=== PATIENT | male | born 1945 | race Caucasian/White ===

== ENCOUNTER 2017-12-07 10:40 | Inpatient (IN) | payer MEDICARE ==
[2017-12-01 15:41] LABS: BASOPHILS % (AUTO) 0.5 % (0-1); EOSINOPHILS # (AUTO) 0.5 X10'3 (0-0.9); EOSINOPHILS % (AUTO) 7.2 % (0-6); LYMPHOCYTES # (AUTO) 1.9 X10'3 (1.1-4.8); LYMPHOCYTES % (AUTO) 28.6 % (21-51); MEAN CORPUSCULAR HEMOGLOBIN 29.6 PG (27.0-31.0); MEAN CORPUSCULAR VOLUME 89.4 FL (78-98); MEAN PLATELET VOLUME 7.6 FL (7.4-10.4); MONOCYTES # (AUTO) 0.8 X10'3 (0-0.9); MONOCYTES % (AUTO) 12.6 % (2-12); NEUTROPHILS # (AUTO) 3.4 X10'3 (1.8-7.7); NEUTROPHILS % (AUTO) 51.1 % (42-75); PRE OP HEMATOCRIT 41.2 % (42.0-52.0); PRE OP HEMOGLOBIN 13.6 g/dL (14.0-17.9); PRE OP PLATELET COUNT 269 X10'3 (140-440); RED CELL DISTRIBUTION WIDTH 14.1 % (11.5-14.5)
[2017-12-01 15:55] LABS: ALBUMIN 3.7 G/DL (3.4-5.0); ALKALINE PHOSPHATASE 94 IU/L (46-116); BLOOD UREA NITROGEN 19 MG/DL (7-18); BUN/CREATININE RATIO 23.8 (5.4-32.0); CALCIUM 9.1 MG/DL (8.5-10.1); CHLORIDE 105 MMOL/L (99-107); PRE OP ALT 29 U/L (30-65); PRE OP ANION GAP 5 (8-16); PRE OP AST 18 U/L (10-37); PRE OP BILIRUB, TOTAL 0.3 MG/DL (0.0-1.0); PRE OP GLUCOSE 123 MG/DL (70-104); PRE OP SODIUM 140 MMOL/L (135-145); TOTAL CARBON DIOXIDE 30.1 MMOL/L (24-32); TOTAL PROTEIN 7.4 G/DL (6.4-8.2); eGFR > 90 ML/MIN
[2017-12-01 15:57] LABS: PRE OP PROTIME 10.2 SECONDS (9.0-12.0)
[~2017-12-07] VITALS: Ht 180.3 cm; Wt 107.3 kg
[2017-12-07] VITALS (14 sets, daily range): BP systolic 113–144; BP diastolic 50–84
[~2017-12-07 10:40] MED LIST: NAPR500T4 PO; PARO30TA73 PO; PRAV80TA3 PO; acetaminophen 325mg tablet PO ONE; ceFAZolin inj. 2,000 MG in dextrose 5%-water 100 ML IV ONE; famotidine 20mg tablet PO ONE; gabapentin 300mg capsule PO ONE; metoclopramide 5 mg/ml inj IV ONE; oxyCODONE SR 10mg (sust. release) tab PO ONE; ringers solution, lacted 1,000 ML IV SCH; tranexamic acid inj. 1,000 MG in normal saline 100ml IV soln 90 ML IV ONE; vancomycin inj 1,500 MG in normal saline 300ml IV soln IV ONE
[2017-12-07] MEDS ORDERED: ceFAZolin 1000mg inj ONE ×2 (13:06→15:23)
[2017-12-07] MEDS ORDERED: cloNIDine hcl/PF 100mcg/ml inj ONE (13:11)
[2017-12-07] MEDS ORDERED: meperidine/PF 25mg/ml syringe IV ONE ×2 (13:15)
[2017-12-07] MEDS ORDERED: ringers solution, lacted 1,000 ML IV SCH ×2 (13:15)
[2017-12-07] MEDS ORDERED: proCHLORperazine 10 MG/2 ml inj IV PRN ×2 (13:15)
[2017-12-07] MEDS ORDERED: ondansetron/PF 4mg/2ml inj IV PRN ×3 (13:15→15:55)
[2017-12-07] MEDS ORDERED: fentaNYL/PF 50MCG/1 ML 2ML syringe IV PRN ×2 (13:15)
[2017-12-07] MEDS ORDERED: desflurane 240ml liquid inh. IH ONE (13:20)
[2017-12-07] MEDS ORDERED: fentaNYL/PF 50MCG/1 ML 2ML syringe ONE (13:25)
[2017-12-07] MEDS ORDERED: midazolam 2 mg/2 ml injection ONE (13:25)
[2017-12-07] MEDS ORDERED: dexamethasone sod phosphate 4mg/ml inj. ONE (14:18)
[2017-12-07] MEDS ORDERED: ePHEDrine 50MG/ML INJ. ONE (14:18)
[2017-12-07] MEDS ORDERED: LIDOcaine 2% (20mg/ml) 5ml vial ONE (14:18)
[2017-12-07] MEDS ORDERED: propofol inj 20 ML IV ONE (14:18)
[2017-12-07] MEDS ORDERED: rocuronium 10mg/ml inj IV ONE (14:18)
[2017-12-07] MEDS ORDERED: BUPIVAcaine/PF 2.5 mg/ml (0.25%) 30ml vial ONE (14:18)
[2017-12-07] MEDS ORDERED: LIDOcaine 1%/PF (10mg/ml) 5ml vial ONE (14:18)
[2017-12-07] MEDS ORDERED: ondansetron/PF 4mg/2ml inj ONE (14:19)
[2017-12-07] MEDS ORDERED: vancomycin 1,000mg inj ONE (15:39)
[2017-12-07] MEDS ORDERED: acetaminophen 325mg tablet PO PRN (15:55)
[2017-12-07] MEDS ORDERED: diphenhydrAMINE 25mg capsule PO PRN ×2 (15:55)
[2017-12-07] MEDS ORDERED: oxyCODONE IR 5mg (immed. release) tablet PO PRN ×2 (15:55)
[2017-12-07] MEDS ORDERED: bisacodyl 10mg suppository rectal RC PRN (15:55)
[2017-12-07] MEDS ORDERED: tranexamic acid inj. 1,000 MG in normal saline 100ml IV soln 100 ML IV ONE (15:55)
[2017-12-07] MEDS ORDERED: magnesium hydroxide 30ml (MOM) UD suspension PO PRN (15:55)
[2017-12-07] MEDS ORDERED: glycopyrrolate 0.2mg/ml inj ONE (16:04)
[2017-12-07] MEDS: potassium cl 20mEq in 1/2 NS 1,000 ML IV SCH ×2 (17:28→23:40)
[2017-12-07] MEDS: cefazolin 1gm/NS 100mL 100 ML IV SCH ×2 (17:28→23:41)
[2017-12-07] MEDS ORDERED: vancomycin/NS 1 GM ADD-VANTAGE 250 ML IV SCH (20:00)
[2017-12-07] MEDS: gabapentin 300mg capsule PO SCH (20:15)
[2017-12-07] MEDS: celeCOXIB 100mg capsule PO SCH (20:15)
[2017-12-07] MEDS: acetaminophen 325mg tablet PO SCH (20:15)
[2017-12-07] MEDS ORDERED: sennosides 8.6mg tablet PO SCH (21:00)
[2017-12-08] MEDS: acetaminophen 325mg tablet PO SCH ×2 (02:11→08:03)
[2017-12-08 02:38] VITALS: BP 137/75
[2017-12-08 05:00] VITALS: BP 116/72
[2017-12-08 06:15] LABS: BASOPHILS % (AUTO) 0.3 % (0-1); EOSINOPHILS # (AUTO) 0.1 X10'3 (0-0.9); EOSINOPHILS % (AUTO) 1.5 % (0-6); HEMATOCRIT 34.7 % (42.0-52.0); HEMOGLOBIN 11.5 g/dl (14.0-17.9); LYMPHOCYTES # (AUTO) 0.7 X10'3 (1.1-4.8); MEAN CORPUSCULAR HEMOGLOBIN 29.6 PG (27.0-31.0); MEAN CORPUSCULAR HGB CONC 33.2 % (33.0-36.5); MEAN CORPUSCULAR VOLUME 89.3 FL (78-98); MEAN PLATELET VOLUME 8.6 FL (7.4-10.4); MONOCYTES # (AUTO) 0.6 X10'3 (0-0.9); MONOCYTES % (AUTO) 7.2 % (2-12); NEUTROPHILS # (AUTO) 7.4 X10'3 (1.8-7.7); PLATELET COUNT 217 X10'3 (140-440); RED BLOOD COUNT 3.89 X10'6 (4.70-6.10); RED CELL DISTRIBUTION WIDTH 13.6 % (11.5-14.5); WHITE BLOOD COUNT 8.9 X10'3 (4.5-11.0)
[2017-12-08 06:34] LABS: ANION GAP 5 (8-16); CHLORIDE 104 MMOL/L (99-107); SODIUM 135 MMOL/L (135-145); TOTAL CARBON DIOXIDE 25.7 MMOL/L (24-32)
[2017-12-08] MEDS: potassium cl 20mEq in 1/2 NS 1,000 ML IV SCH (07:55)
[2017-12-08] MEDS ORDERED: pravastatin 40mg tablet PO SCH (08:00)
[2017-12-08] MEDS ORDERED: PARoxetine 30mg tablet PO SCH (08:00)
[2017-12-08] MEDS: celeCOXIB 100mg capsule PO SCH (08:04)
[2017-12-08] MEDS: gabapentin 300mg capsule PO SCH (08:04)
[2017-12-08] MEDS ORDERED: PARoxetine 10mg tablet PO SCH (08:08)
[2017-12-08] MEDS ORDERED: aspirin 325mg tablet PO SCH (08:30)
[2017-12-08] MEDS ORDERED: ASPI-1 PO (09:20)
[2017-12-09] MEDS ORDERED: acetaminophen 325mg tablet PO PRN (15:55)
== END 2017-12-08 10:15 | disposition home or self-care (01) | DRG 483 ==
LOC: PAS IN 10:40 → EDSTATUS 14:00 → ORTHO 4S 16:45
PROVIDERS: ADMIT Orthopaedic Surgery; ATTEND Orthopaedic Surgery
PROC: 3E0T3BZ Introduction of Anesthetic Agent into Peripheral Nerves and Plexi, Percutaneous Approach (ICD-10-PCS; 2017-12-07)
PROC: 0RRK00Z Replacement of Left Shoulder Joint with Reverse Ball and Socket Synthetic Substitute, Open Approach (ICD-10-PCS; principal; 2017-12-07 13:20)
DX: M19.012 Primary osteoarthritis, left shoulder (principal); D62 Acute posthemorrhagic anemia; M75.102 Unspecified rotator cuff tear or rupture of left shoulder, not specified as traumatic; E78.5 Hyperlipidemia, unspecified; F32.9 Major depressive disorder, single episode, unspecified; Z79.899 Other long term (current) drug therapy
CPT/HCPCS: 36415; 80051; 80053; 85025; 85610; 85730; 87070; 93005; 97116; 97161; 97530; A4565; A6255; A7000; C1758; C9250; J0690; J0735; J1100; J2001; J2250; J2405; J2704; J2765; J3010; J3370; J3490; J7060; J7120

== ENCOUNTER 2022-02-03 08:54 | Inpatient (IN) | payer OTHER ==
[2022-01-27 12:11] LABS: BASOPHILS # (AUTO) 0.1 X10'3 (0-0.2); BASOPHILS % (AUTO) 1.2 % (0-1); EOSINOPHILS # (AUTO) 0.6 X10'3 (0-0.9); EOSINOPHILS % (AUTO) 10.3 % (0-6); LYMPHOCYTES # (AUTO) 1.4 X10'3 (1.1-4.8); LYMPHOCYTES % (AUTO) 24.6 % (21-51); MEAN CORPUSCULAR HEMOGLOBIN 28.8 PG (27.0-31.0); MEAN CORPUSCULAR HGB CONC 33.1 g/dL (33.0-36.5); MEAN CORPUSCULAR VOLUME 86.9 FL (78-98); MEAN PLATELET VOLUME 7.9 FL (7.4-10.4); MONOCYTES # (AUTO) 0.6 X10'3 (0-0.9); MONOCYTES % (AUTO) 10.5 % (2-12); NEUTROPHILS % (AUTO) 53.4 % (42-75); PRE OP HEMATOCRIT 36.8 % (42.0-52.0); PRE OP HEMOGLOBIN 12.2 g/dL (14.0-17.9); PRE OP PLATELET COUNT 294 X10'3 (140-440); RED BLOOD COUNT 4.23 X10'6 (4.70-6.10); RED CELL DISTRIBUTION WIDTH 14.1 % (11.5-14.5)
[2022-01-27 12:49] LABS: ALBUMIN 4.1 G/DL (3.4-5.0); ALBUMIN/GLOBULIN RATIO 1.1 (1.1-1.5); ALKALINE PHOSPHATASE 86 IU/L (46-116); BLOOD UREA NITROGEN 19 MG/DL (7-18); BUN/CREATININE RATIO 24.7 (5.4-32.0); CALCIUM 9.4 MG/DL (8.5-10.1); CHLORIDE 104 MMOL/L (99-107); CREATININE 0.77 MG/DL (0.60-1.10); PRE OP ALT 34 U/L (30-65); PRE OP ANION GAP 10 (8-16); PRE OP AST 25 U/L (10-37); PRE OP BILIRUB, TOTAL 0.2 MG/DL (0.0-1.0); PRE OP GLUCOSE 128 MG/DL (70-104); PRE OP POTASSIUM 4.8 MMOL/L (3.4-5.1); PRE OP SODIUM 140 MMOL/L (135-145); TOTAL CARBON DIOXIDE 25.8 MMOL/L (24-32); TOTAL PROTEIN 7.7 G/DL (6.4-8.2); eGFR > 90 ML/MIN
[2022-02-03] VITALS (17 sets, daily range): BP systolic 87–159; BP diastolic 49–103
[~2022-02-03] VITALS: Ht 180.3 cm; Wt 106.8 kg
[~2022-02-03 08:54] MED LIST changes: +LISI10TA27 PO; +MULT-1085 PO; -NAPR500T4 PO; +PANT40TA54 PO; +PARO20TA6 PO; -PARO30TA73 PO; +TRAM50TA2 PO; -acetaminophen 325mg tablet PO ONE; -ceFAZolin inj. 2,000 MG in dextrose 5%-water 100 ML IV ONE; +cefazolin/dext.iso 2gm/50ml IV ONE; -gabapentin 300mg capsule PO ONE; -metoclopramide 5 mg/ml inj IV ONE; -oxyCODONE SR 10mg (sust. release) tab PO ONE; +tranexamic acid inj. 1,000 MG in 0.7% saline 100 ML PMX IV ONE; -tranexamic acid inj. 1,000 MG in normal saline 100ml IV soln 90 ML IV ONE; +vancomycin 1,500 MG in NS 300ml IV soln IV ONE; -vancomycin inj 1,500 MG in normal saline 300ml IV soln IV ONE
[2022-02-03] MEDS ORDERED: vancomycin 1,000mg inj ONE (09:50)
[2022-02-03] MEDS ORDERED: sevoflurane 250ml liquid IH ONE (11:09)
[2022-02-03] MEDS ORDERED: FENTANYL CITRATE/PF 50 MCG/1 ML VIAL ONE (11:12)
[2022-02-03] MEDS ORDERED: MIDAZolam 1 MG/ML 5ML VIAL ONE (11:12)
[2022-02-03] MEDS ORDERED: propofol inj 20 ML IV ONE (11:14)
[2022-02-03] MEDS ORDERED: ROPIVAcaine 0.5% (5mg/ml) 30ml vial ONE (11:14)
[2022-02-03] MEDS ORDERED: ePHEDrine 50MG/ML INJ. ONE (11:47)
[2022-02-03] MEDS ORDERED: ondansetron/PF 4mg/2ml inj IV PRN ×2 (12:35→14:15)
[2022-02-03] MEDS ORDERED: morphine 4 MG/ML inj SYRINge IV PRN (12:35)
[2022-02-03] MEDS ORDERED: morphine 2 MG/ML inj. syringe IV PRN (12:35)
[2022-02-03] MEDS ORDERED: proCHLORperazine 10 MG/2 ml inj IV PRN (12:35)
[2022-02-03] MEDS ORDERED: ROPIVAcaine 0.2% (10 MG/5 ML) BOLUS INJECTION INTERSCALE PRN (12:35)
[2022-02-03] MEDS ORDERED: meperidine/PF 25mg/ml syringe IV PRN ×3 (12:35)
[2022-02-03] MEDS ORDERED: ringers solution, lacted 1,000 ML IV SCH (12:35)
[2022-02-03] MEDS ORDERED: diphenhydrAMINE 25mg capsule PO PRN ×2 (14:15)
[2022-02-03] MEDS ORDERED: bisacodyl 10mg suppository rectal RC PRN (14:15)
[2022-02-03] MEDS ORDERED: magnesium hydroxide 30ml (MOM) UD suspension PO PRN (14:15)
[2022-02-03] MEDS ORDERED: HYDROmorphone 1 mg/ml syringe IV PRN (14:15)
[2022-02-03] MEDS ORDERED: HYDROmorphone inj. 0.5 MG/0.5 ML DISP.SYRIN IV PRN (14:15)
[2022-02-03] MEDS ORDERED: acetaminophen 325mg tablet PO PRN (14:15)
[2022-02-03] MEDS ORDERED: oxyCODONE IR 5mg (immed. release) tablet PO PRN (14:15)
--- NOTE | 2022-02-03 14:24 | NUR ---
Received from OR via hospital bed, accompanied by Anesthesiologist Dr. Armas and report given by Anesthesiolgist. 20G in left hand with LR running at 100ml/hr. on 10L mask. dressing to right shoulder cdi with cold pack and island dressing. pulses present. will continue to monitor.
[2022-02-03] MEDS: ROPIVAcaine 0.2%/PF PUMP/bolus 545 ML INTERSCALE SCH (14:51)
--- NOTE | 2022-02-03 15:24 | NUR ---
Report called to Ay[facility], patient transported to 345B
[2022-02-03] MEDS: ceFAZolin/D5W- 1GM premix 50 ML IV SCH ×2 (16:37→23:58)
[2022-02-03] MEDS ORDERED: tranexamic acid 1gm/0.7% sal. 100 ML IV ONE (17:00)
--- NOTE | 2022-02-03 18:19 | NUR ---
Problems reprioritized. Patient report given, questions answered & plan of care reviewed with TRISHA PATEL.
[2022-02-03] MEDS: potassium cl 20mEq in 1/2 NS 1,000 ML IV SCH ×2 (18:28→22:15)
[2022-02-03] MEDS ORDERED: VANCOMYCIN 1GM/200ML IVPB 200 ML IV SCH (20:00)
[2022-02-03] MEDS: acetaminophen 325mg tablet PO SCH (20:44)
[2022-02-03] MEDS: gabapentin 300mg capsule PO SCH (20:45)
[2022-02-03] MEDS ORDERED: sennosides 8.6mg tablet PO SCH (21:00)
[2022-02-04] VITALS: BP 120/67
[2022-02-04] MEDS: ceFAZolin/D5W- 1GM premix 50 ML IV SCH (00:19)
[2022-02-04] MEDS: acetaminophen 325mg tablet PO SCH ×3 (01:45→15:19)
[2022-02-04] MEDS: oxyCODONE IR 5mg (immed. release) tablet PO PRN ×2 (01:45→08:26)
[2022-02-04 04:00] VITALS: BP 126/82
[2022-02-04] MEDS: potassium cl 20mEq in 1/2 NS 1,000 ML IV SCH (04:10)
--- NOTE | 2022-02-04 04:22 | NUR ---
pt noted to desat to 88% while sleeping . pt on his own cpap. rt contacted and placed oxygen 2l nc thru his cpap . o2 sat 95% on cpap
[2022-02-04 06:04] LABS: ANION GAP 10 (8-16); CHLORIDE 103 MMOL/L (99-107); POTASSIUM 4.4 MMOL/L (3.5-5.1); SODIUM 137 MMOL/L (135-145); TOTAL CARBON DIOXIDE 23.7 MMOL/L (24-32)
[2022-02-04 06:18] LABS: BASOPHILS % (AUTO) 0.2 % (0-1); EOSINOPHILS % (AUTO) 0.2 % (0-6); HEMATOCRIT 31.8 % (42.0-52.0); HEMOGLOBIN 10.5 g/dl (14.0-17.9); LYMPHOCYTES # (AUTO) 0.6 X10'3 (1.1-4.8); LYMPHOCYTES % (AUTO) 7.8 % (21-51); MEAN CORPUSCULAR HEMOGLOBIN 28.6 PG (27.0-31.0); MEAN CORPUSCULAR VOLUME 86.7 FL (78-98); MEAN PLATELET VOLUME 8.3 FL (7.4-10.4); MONOCYTES # (AUTO) 0.9 X10'3 (0-0.9); MONOCYTES % (AUTO) 10.8 % (2-12); NEUTROPHILS # (AUTO) 6.5 X10'3 (1.8-7.7); PLATELET COUNT 258 X10'3 (140-440); RED BLOOD COUNT 3.67 X10'6 (4.70-6.10); RED CELL DISTRIBUTION WIDTH 13.7 % (11.5-14.5)
--- NOTE | 2022-02-04 06:32 | NUR ---
pt states numbness in left foot improved and r thumb numbness is not present. pt has movement , sensation , brisk cap refill and warmth to r hand
--- NOTE | 2022-02-04 06:43 | NUR ---
Patient in room [facility]. I have received report from AMANDA Lee and had the opportunity to ask questions and assume patient care.
[2022-02-04 07:34] VITALS: BP 164/68
[2022-02-04] MEDS ORDERED: lisinopril 10 MG tablet PO SCH (08:00)
[2022-02-04] MEDS: gabapentin 300mg capsule PO SCH ×2 (08:26→12:32)
[2022-02-04] MEDS ORDERED: aspirin 325mg tablet PO SCH (08:30)
[2022-02-04 11:00] VITALS: BP 165/95
[2022-02-04] MEDS ORDERED: ketorolac tromethamine 15mg/ml inj. IV ONE (11:45)
[2022-02-04] MEDS ORDERED: HYDROcodone/acetaminophen 10/325mg tab PO ONE (11:45)
[2022-02-04] MEDS ORDERED: traMADol 50MG tablet PO PRN (12:10)
[2022-02-04 12:32] VITALS: BP_SYST 165
[2022-02-04] MEDS ORDERED: GABA300C PO (12:52)
[2022-02-04] MEDS ORDERED: HYDR-3972 PO (12:52)
[2022-02-04] MEDS ORDERED: ASPI-107 PO (13:52)
[2022-02-04] MEDS: ROPIVAcaine 0.2%/PF PUMP/bolus 545 ML INTERSCALE SCH (16:05)
--- NOTE | 2022-02-04 17:10 | NUR ---
Pt discharged to home at 1625, with all belongings, in private vehicle accompanied by . Discharge instructions and medications reviewed. New prescriptions e-scripted to [facility] on [address]. Pt instructed to follow up with Dr Galvez in 1-2 weeks, and to call his office to schedule appointment. Education provided regarding post-op care, including signs of infection and to contact Dr Galvez with any concerns. OnQ pump replaced prior to discharge, with instructions to DC when empty. Pt states understanding and willingness to comply with all discharge instructions. IV DC'd, cannula intact. Pt escorted to front lobby via wheelchair by PCT.
[2022-02-04] MEDS ORDERED: pantoprazole 40mg Tablet.DR PO SCH (20:00)
[2022-02-04] MEDS ORDERED: celeCOXIB 100mg capsule PO SCH (20:00)
[2022-02-05] MEDS ORDERED: multivitamins, therapeutics tablet PO SCH (08:00)
[2022-02-05] MEDS ORDERED: PARoxetine 20mg tablet PO SCH (08:00)
[2022-02-05] MEDS ORDERED: atorvastatin 20mg tablet PO SCH (08:00)
[2022-02-05] MEDS ORDERED: acetaminophen 325mg tablet PO PRN (14:15)
== END 2022-02-04 16:25 | disposition home or self-care (01) | DRG 483 ==
LOC: PAS IN 08:54 → SUR 3N 15:49
PROVIDERS: ADMIT Orthopaedic Surgery; ATTEND Orthopaedic Surgery
PROC: 3E0T3BZ Introduction of Anesthetic Agent into Peripheral Nerves and Plexi, Percutaneous Approach (ICD-10-PCS; 2022-02-03)
PROC: 3E0T33Z Introduction of Anti-inflammatory into Peripheral Nerves and Plexi, Percutaneous Approach (ICD-10-PCS; 2022-02-03)
PROC: 0RRJ00Z Replacement of Right Shoulder Joint with Reverse Ball and Socket Synthetic Substitute, Open Approach (ICD-10-PCS; principal; 2022-02-03 11:09)
DX: M19.011 Primary osteoarthritis, right shoulder (principal); D62 Acute posthemorrhagic anemia; M75.101 Unspecified rotator cuff tear or rupture of right shoulder, not specified as traumatic; I10 Essential (primary) hypertension; G47.30 Sleep apnea, unspecified; E66.9 Obesity, unspecified; G89.29 Other chronic pain; M54.9 Dorsalgia, unspecified; Z68.32 Body mass index [BMI] 32.0-32.9, adult; Z79.899 Other long term (current) drug therapy
CPT/HCPCS: 36415; 71046; 73020; 80051; 80053; 81003; 82948; 85025; 87081; 93005; 97110; 97161; 97530; A4565; A4618; A7000; C1776; C9250; G0378; J0690; J1170; J1885; J2250; J2704; J2795; J3010; J3370; J3480; J3490; J7040; J7120

== ENCOUNTER 2022-02-09 00:34 | Emergency (ER) | payer OTHER ==
[~2022-02-09] VITALS: Ht 180.3 cm; Wt 104.5 kg
[~2022-02-09 00:34] MED LIST changes: +ASPI-107 PO; +GABA300C PO; +HYDR-3972 PO; -TRAM50TA2 PO; -cefazolin/dext.iso 2gm/50ml IV ONE; -famotidine 20mg tablet PO ONE; -ringers solution, lacted 1,000 ML IV SCH; -tranexamic acid inj. 1,000 MG in 0.7% saline 100 ML PMX IV ONE; -vancomycin 1,500 MG in NS 300ml IV soln IV ONE
[2022-02-09 00:37] VITALS: BP 123/72
[2022-02-09 03:04] LABS: BASOPHILS # (AUTO) 0.1 X10'3 (0-0.2); BASOPHILS % (AUTO) 0.9 % (0-1); EOSINOPHILS # (AUTO) 0.4 X10'3 (0-0.9); EOSINOPHILS % (AUTO) 6.1 % (0-6); HEMATOCRIT 29.7 % (42.0-52.0); HEMOGLOBIN 9.7 g/dl (14.0-17.9); LYMPHOCYTES # (AUTO) 1.1 X10'3 (1.1-4.8); MEAN CORPUSCULAR HEMOGLOBIN 28.2 PG (27.0-31.0); MEAN CORPUSCULAR HGB CONC 32.7 g/dL (33.0-36.5); MEAN CORPUSCULAR VOLUME 86.2 FL (78-98); MEAN PLATELET VOLUME 7.3 FL (7.4-10.4); MONOCYTES # (AUTO) 0.8 X10'3 (0-0.9); MONOCYTES % (AUTO) 13.2 % (2-12); NEUTROPHILS # (AUTO) 3.7 X10'3 (1.8-7.7); NEUTROPHILS % (AUTO) 61.8 % (42-75); PLATELET COUNT 343 X10'3 (140-440); RED BLOOD COUNT 3.45 X10'6 (4.70-6.10); RED CELL DISTRIBUTION WIDTH 13.9 % (11.5-14.5); WHITE BLOOD COUNT 5.9 X10'3 (4.5-11.0)
[2022-02-09 03:18] LABS: ALANINE AMINOTRANSFERASE 43 U/L (12-78); ALBUMIN 3.1 G/DL (3.4-5.0); ALBUMIN/GLOBULIN RATIO 0.6 (1.1-1.5); ALKALINE PHOSPHATASE 125 IU/L (46-116); ANION GAP 9 (8-16); ASPARTATE AMINO TRANSFERASE 45 U/L (10-37); BILIRUBIN,TOTAL 0.3 MG/DL (0.1-1.0); BLOOD UREA NITROGEN 12 MG/DL (7-18); BUN/CREATININE RATIO 15.4 (5.4-32.0); CHLORIDE 101 MMOL/L (99-107); CREATININE 0.78 MG/DL (0.60-1.10); GLUCOSE 117 MG/DL (70-104); POTASSIUM 4.5 MMOL/L (3.5-5.1); SODIUM 139 MMOL/L (135-145); eGFR > 90 ML/MIN
== END 2022-02-09 04:08 | disposition left against medical advice (07) ==
LOC: ER 00:35
DX: S40.911D Unspecified superficial injury of right shoulder, subsequent encounter (principal); M25.511 Pain in right shoulder; Z98.890 Other specified postprocedural states; Z79.82 Long term (current) use of aspirin; Z79.899 Other long term (current) drug therapy; X58.XXXD Exposure to other specified factors, subsequent encounter
CPT/HCPCS: 36415; 80053; 85025; 99283

== ENCOUNTER 2022-02-22 14:12 | Emergency (ER) | payer OTHER ==
[~2022-02-22] VITALS: Ht 180.3 cm; Wt 104.5 kg
[2022-02-22 14:37] VITALS: BP 115/82
--- NOTE | 2022-02-22 15:29 | NUR ---
pc from charge nurse in or stating he just spoke to dr polo office and pts sx is scheduled for tuesday and not today and for pt to contact dr polo office.
[2022-02-22 15:34] LABS: BASOPHILS # (AUTO) 0.1 X10'3 (0-0.2); EOSINOPHILS # (AUTO) 0.1 X10'3 (0-0.9); EOSINOPHILS % (AUTO) 1.7 % (0-6); HEMATOCRIT 36.6 % (42.0-52.0); HEMOGLOBIN 11.7 g/dl (14.0-17.9); LYMPHOCYTES % (AUTO) 11.5 % (21-51); MEAN CORPUSCULAR HEMOGLOBIN 26.8 PG (27.0-31.0); MEAN PLATELET VOLUME 7.3 FL (7.4-10.4); MONOCYTES # (AUTO) 0.6 X10'3 (0-0.9); MONOCYTES % (AUTO) 7.4 % (2-12); NEUTROPHILS # (AUTO) 6.6 X10'3 (1.8-7.7); NEUTROPHILS % (AUTO) 78.4 % (42-75); PLATELET COUNT 499 X10'3 (140-440); RED BLOOD COUNT 4.36 X10'6 (4.70-6.10); RED CELL DISTRIBUTION WIDTH 13.8 % (11.5-14.5); WHITE BLOOD COUNT 8.4 X10'3 (4.5-11.0)
[2022-02-22 15:43] LABS: ALANINE AMINOTRANSFERASE 21 U/L (12-78); ALBUMIN 3.8 G/DL (3.4-5.0); ALBUMIN/GLOBULIN RATIO 0.8 (1.1-1.5); ALKALINE PHOSPHATASE 140 IU/L (46-116); ANION GAP 12 (8-16); APTT 26 SECONDS (22-32); ASPARTATE AMINO TRANSFERASE 19 U/L (10-37); BILIRUBIN,TOTAL 0.3 MG/DL (0.1-1.0); BLOOD UREA NITROGEN 16 MG/DL (7-18); BUN/CREATININE RATIO 16.5 (5.4-32.0); CALCIUM 9.4 MG/DL (8.5-10.1); CHLORIDE 103 MMOL/L (99-107); CREATININE 0.97 MG/DL (0.60-1.10); GLUCOSE 119 MG/DL (70-104); POTASSIUM 4.7 MMOL/L (3.5-5.1); SODIUM 139 MMOL/L (135-145); TOTAL CARBON DIOXIDE 24.4 MMOL/L (24-32); TOTAL PROTEIN 8.3 G/DL (6.4-8.2); eGFR 75 ML/MIN
[2022-02-24] MEDS ORDERED: TRAM50TA2 PO (13:24)
[2022-02-24] MEDS ORDERED: GABA300C PO (13:25)
[2022-02-24] MEDS ORDERED: ASPI81TA52 PO (13:25)
== END 2022-02-22 15:33 | disposition home or self-care (01) ==
LOC: ER 14:13
DX: M25.511 Pain in right shoulder (principal); Z20.822 Contact with and (suspected) exposure to COVID-19; S41.001D Unspecified open wound of right shoulder, subsequent encounter; Z48.01 Encounter for change or removal of surgical wound dressing; Z96.611 Presence of right artificial shoulder joint; X58.XXXD Exposure to other specified factors, subsequent encounter
CPT/HCPCS: 36415; 71045; 80053; 85025; 85610; 85730; 87635; 93005; 99285; C9803

== ENCOUNTER 2022-03-11 12:52 | Inpatient (IN) | payer OTHER ==
[~2022-03-11] VITALS: Ht 180.3 cm; Wt 99.8 kg
[~2022-03-11 12:52] MED LIST changes: -ASPI-107 PO; +ASPI81TA52 PO; +CIPR250T4 PO; -HYDR-3972 PO; -LISI10TA27 PO; +LISI20TA28 PO; -MULT-1085 PO; +RIFA300C9 PO; +TRAM50TA2 PO
[2022-03-11 16:49] VITALS: BP 165/74
--- NOTE | 2022-03-11 18:30 | NUR ---
Patient in room ORTHO 4007. I have received report from Tommy PATEL and had the opportunity to ask questions and assume patient care.
[2022-03-11] MEDS: traMADol 50MG tablet PO PRN (19:09)
[2022-03-11 19:16] LABS: CREATININE 1.01 MG/DL (0.60-1.10); eGFR 72 ML/MIN
[2022-03-11] MEDS: vancomycin/NS 1 GM ADD-VANTAGE 250 ML IV SCH (20:45)
--- NOTE | 2022-03-11 20:55 | NUR ---
Attempted multiple times to get IV access, patient has PICC line for home infusion and called Dr. Galvez and got ok to use PICC line.
[2022-03-11 22:00] VITALS: BP 168/83
[2022-03-11] MEDS: ciprofloxacin 250mg tablet PO SCH (22:10)
[2022-03-12] VITALS (19 sets, daily range): BP systolic 108–149; BP diastolic 61–94
[2022-03-12] MEDS: traMADol 50MG tablet PO PRN (02:15)
[2022-03-12 05:09] LABS: BASOPHILS # (AUTO) 0.1 X10'3 (0-0.2); BASOPHILS % (AUTO) 1.1 % (0-1); EOSINOPHILS # (AUTO) 0.8 X10'3 (0-0.9); EOSINOPHILS % (AUTO) 13.4 % (0-6); HEMATOCRIT 30.8 % (42.0-52.0); LYMPHOCYTES # (AUTO) 1.1 X10'3 (1.1-4.8); LYMPHOCYTES % (AUTO) 17.7 % (21-51); MEAN CORPUSCULAR HEMOGLOBIN 26.5 PG (27.0-31.0); MEAN CORPUSCULAR HGB CONC 32.5 g/dL (33.0-36.5); MEAN CORPUSCULAR VOLUME 81.7 FL (78-98); MEAN PLATELET VOLUME 6.9 FL (7.4-10.4); MONOCYTES # (AUTO) 0.7 X10'3 (0-0.9); MONOCYTES % (AUTO) 11.6 % (2-12); NEUTROPHILS # (AUTO) 3.5 X10'3 (1.8-7.7); NEUTROPHILS % (AUTO) 56.2 % (42-75); PLATELET COUNT 320 X10'3 (140-440); RED BLOOD COUNT 3.77 X10'6 (4.70-6.10); RED CELL DISTRIBUTION WIDTH 14.1 % (11.5-14.5); WHITE BLOOD COUNT 6.2 X10'3 (4.5-11.0)
[2022-03-12 05:22] LABS: APTT 27 SECONDS (22-32)
[2022-03-12 05:24] LABS: ALANINE AMINOTRANSFERASE 19 U/L (12-78); ALBUMIN 2.9 G/DL (3.4-5.0); ALBUMIN/GLOBULIN RATIO 0.8 (1.1-1.5); ALKALINE PHOSPHATASE 105 IU/L (46-116); ANION GAP 10 (8-16); ASPARTATE AMINO TRANSFERASE 20 U/L (10-37); BILIRUBIN,TOTAL 0.2 MG/DL (0.1-1.0); BLOOD UREA NITROGEN 16 MG/DL (7-18); BUN/CREATININE RATIO 14.2 (5.4-32.0); CALCIUM 8.6 MG/DL (8.5-10.1); CHLORIDE 105 MMOL/L (99-107); CREATININE 1.13 MG/DL (0.60-1.10); GLUCOSE 111 MG/DL (70-104); POTASSIUM 4.1 MMOL/L (3.5-5.1); SODIUM 140 MMOL/L (135-145); TOTAL CARBON DIOXIDE 25.1 MMOL/L (24-32); TOTAL PROTEIN 6.7 G/DL (6.4-8.2); eGFR 63 ML/MIN
[2022-03-12] MEDS ORDERED: morphine 2 MG/ML inj. syringe IV PRN (06:40)
[2022-03-12] MEDS ORDERED: hydrALAZINE 20mg/ml inj. IV PRN (06:40)
[2022-03-12] MEDS ORDERED: fentaNYL/PF 50MCG/1 ML 2ML syringe IV PRN ×2 (06:40)
[2022-03-12] MEDS ORDERED: labetalol 20mg/4ml (5mg/ml) syringe IV PRN (06:40)
[2022-03-12] MEDS ORDERED: morphine 4 MG/ML inj SYRINge IV PRN (06:40)
[2022-03-12] MEDS ORDERED: ondansetron/PF 4mg/2ml inj IV PRN ×3 (06:40→12:45)
[2022-03-12] MEDS ORDERED: ringers solution, lacted 1,000 ML IV SCH (06:40)
--- NOTE | 2022-03-12 06:44 | NUR ---
Problems reprioritized. Patient report given, questions answered & plan of care reviewed with Esperanza PATEL.
--- NOTE | 2022-03-12 06:58 | NUR ---
Patient report given to Gina OR department store salesperson. Patients blood sugar is 107
--- NOTE | 2022-03-12 07:02 | NUR ---
Patient left for surgery via hospital bed.
--- NOTE | 2022-03-12 07:04 | NUR ---
Per installer technician AMANDA [facility] called and stated ok to run 0800 Vanco patient going to surgery and they don't need trough this morning.
[2022-03-12] MEDS ORDERED: vancomycin 1,000mg inj ONE ×2 (07:17→07:35)
[2022-03-12] MEDS ORDERED: morphine 10mg/ml inj. ONE ×2 (07:18)
[2022-03-12] MEDS ORDERED: midazolam 1 mg/ML 2ml injection ONE (07:18)
[2022-03-12] MEDS ORDERED: ondansetron/PF 4mg/2ml inj ONE (07:19)
[2022-03-12] MEDS ORDERED: propofol inj 20 ML IV ONE (07:19)
[2022-03-12] MEDS ORDERED: rocuronium 10mg/ml inj IV ONE (07:19)
[2022-03-12] MEDS ORDERED: LIDOcaine 2% (20mg/ml) 5ml vial ONE (07:19)
[2022-03-12] MEDS ORDERED: succinylcholine 20mg/ml inj IV ONE (07:35)
[2022-03-12] MEDS ORDERED: ROPIVAcaine 0.5% (5mg/ml) 30ml vial ONE (07:36)
[2022-03-12] MEDS ORDERED: tobramycin sulfate 1.2gm vial IR ONE (07:37)
[2022-03-12] MEDS: vancomycin/NS 1 GM ADD-VANTAGE 250 ML IV SCH ×2 (08:00→20:11)
[2022-03-12] MEDS ORDERED: ePHEDrine 50MG/ML INJ. ONE (08:10)
--- NOTE | 2022-03-12 08:47 | NUR ---
Malnutrition consult: Pt reports 2-13 lb wt loss with decreased appetite per malnutrition risk screen. Pt currently in OR. Pt with recent scaled wt h/o 104.09 kg taken 02/26 with a chair scale, current wt of 99.79 kg is not scaled. Noted pt ate well at previous admit, documented with 100% PO intake on regular diet from 02/25-03/01. Pt currently NPO however documented to have consumed 100% of dinner 03/11. Pt with no documented significant decrease in muscle strength or edema. Pt currently lacks a minimum of two criteria for malnutrition. Will continue to follow. Addendum: 03/12/22 at [address] Amended: Links added.
--- NOTE | 2022-03-12 10:25 | NUR ---
Received from OR via , accompanied by Anesthesiologist DR SALDAÑA and report given by Anesthesiolgist. PT PRESENTS WITH 20G LEFT FOREARM, RIGHT SHOULDER ISLAND DRESING WITH WESTLEY SEPULVEDA. Addendum: 03/12/22 at 1037 by Dolores Hill RN, RN Amended: Links added.
[2022-03-12] MEDS ORDERED: naloxone 0.4 mg/ml inj IV PRN (10:30)
[2022-03-12] MEDS ORDERED: acetaminophen 325mg tablet PO PRN ×2 (10:30→12:45)
[2022-03-12] MEDS ORDERED: tranexamic acid inj. 0 MG in normal saline 100ml IV soln 100 ML IV ONE (10:30)
[2022-03-12] MEDS ORDERED: bisacodyl 10mg suppository rectal RC PRN (10:30)
[2022-03-12] MEDS ORDERED: HYDROmorphone 1 mg/ml syringe IV PRN (10:30)
[2022-03-12] MEDS ORDERED: diphenhydrAMINE 25mg capsule PO PRN ×2 (10:30)
[2022-03-12] MEDS ORDERED: HYDROmorphone inj. 0.5 MG/0.5 ML DISP.SYRIN IV PRN (10:30)
[2022-03-12] MEDS ORDERED: magnesium hydroxide 30ml (MOM) UD suspension PO PRN ×2 (10:30→12:45)
--- NOTE | 2022-03-12 11:31 | NUR ---
Called Dr Galvez and he states patient does not need Tranexamic acid dose that is ordered for the floor. Received orders for patient to have an shoulder wrap for ice, Also got patients med rec addressed. Dr Galvez states patient can have either Tramadol or Oxy whichever works best just not both. Dr Galvez is aware Tramadol on hold a this time.
--- NOTE | 2022-03-12 11:35 | NUR ---
Report called to receiving nurse DIANNA PATEL. Transferred via HOSPITAL BED BY PAWEL PATEL AND LATONIA PATEL TO ROOM 4007. PT BELONGINGS WERE LEFT IN ROOM WITH BETO. BED IN LOW LOCKED POSITION WITH CALL LIGHT IN REACH. Special Issues communicated to receiving nurse. Addendum: 03/12/22 at 1153 by Dolores Hill RN RN Amended: Links added.
[2022-03-12] MEDS ORDERED: tranexamic acid inj. 1,000 MG in 0.7% saline 100 ML PMX IV ONE (12:05)
--- NOTE | 2022-03-12 12:06 | NUR ---
Called Dr Galvez and he is aware patient did not receive any Tranexamic acid in recovery or OR and he is now on the unit and is bleeding through his dressing. Dr Galvez aware I placed a pressure dressing on patient and he has the compression wrap for ice in place patients current vitals 126/66 HR 105 98.1 temp RR 18 SPO@ 96 2L . Received orders to give patient one time dose of Transexamic acid now. Called Pharmacy and spoke to Yamileth the pharmacist and she will have someone bring medication up now.
[2022-03-12] MEDS: gabapentin 300mg capsule PO SCH ×2 (12:13→20:14)
[2022-03-12] MEDS: ciprofloxacin 250mg tablet PO SCH (12:44)
[2022-03-12] MEDS ORDERED: magnesium Cl slow-release 64mg tablet PO PRN (12:45)
[2022-03-12] MEDS ORDERED: magnesium 2GM in 50ml NS 50 ML IV PRN (12:45)
[2022-03-12] MEDS ORDERED: piperacillin/tazo 3.375gm/50ml 50 ML IV SCH (12:45)
[2022-03-12] MEDS ORDERED: magnesium 4gm in 100ml NS 100 ML IV PRN (12:45)
[2022-03-12] MEDS ORDERED: potassium Cl 20 mEq SR tablet PO PRN ×2 (12:45)
[2022-03-12] MEDS ORDERED: potassium CL 10mEq/100ml bag 100 ML IV PRN (12:45)
[2022-03-12] MEDS: normal saline 1000ml 1,000 ML IV SCH (14:22)
[2022-03-12] MEDS: acetaminophen 325mg tablet PO SCH ×2 (14:24→20:15)
[2022-03-12] MEDS ORDERED: heparin, porcine 5000 units/ml vial SQ SCH (16:00)
--- NOTE | 2022-03-12 16:58 | NUR ---
PAGER ID: [phone] MESSAGE: Zion Guerrero [phone] Re: [phone] Henri please call re: heparin would like to hole due to patient had some bleeding after surgery Addendum: 03/12/22 at 1701 by Esperanza Anderson RN Received orders to hold heparin until 0800 03/13 then restart q8h in am. Continue patient with SCD's and ambulation
--- NOTE | 2022-03-12 18:53 | NUR ---
Problems reprioritized. Patient report given, questions answered & plan of care reviewed with La Nena PATEL.
[2022-03-12] MEDS: K and/or MAG REPLACEMENT MC SCH (20:00)
[2022-03-12] MEDS ORDERED: vancomycin/NS 1 GM ADD-VANTAGE 250 ML IV SCH (20:00)
[2022-03-12] MEDS: pantoprazole 40mg Tablet.DR PO SCH (20:14)
[2022-03-12] MEDS: lisinopril 20mg tablet PO SCH (20:14)
[2022-03-12] MEDS ORDERED: sennosides 8.6mg tablet PO SCH (21:00)
[2022-03-12] MEDS ORDERED: ciprofloxacin 250mg tablet PO SCH ×2 (22:00)
[2022-03-12] MEDS: oxyCODONE IR 5mg (immed. release) tablet PO PRN (23:44)
[2022-03-13] MEDS: acetaminophen 325mg tablet PO SCH ×4 (01:29→20:54)
[2022-03-13 02:00] VITALS: BP 137/75
[2022-03-13] MEDS: oxyCODONE IR 5mg (immed. release) tablet PO PRN ×3 (04:07→21:03)
[2022-03-13] MEDS: normal saline 1000ml 1,000 ML IV SCH ×3 (04:07→22:57)
[2022-03-13 06:00] VITALS: BP 140/72
--- NOTE | 2022-03-13 06:37 | NUR ---
Problems reprioritized. Patient report given, questions answered & plan of care reviewed with Waldemar PATEL.
[2022-03-13] MEDS ORDERED: VANCOMYCIN LEVEL IV ONE ×2 (07:30→20:00)
[2022-03-13] MEDS: pantoprazole 40mg Tablet.DR PO SCH ×2 (07:33→20:53)
[2022-03-13] MEDS: lisinopril 20mg tablet PO SCH ×2 (07:34→20:55)
[2022-03-13] MEDS: gabapentin 300mg capsule PO SCH ×3 (07:38→20:53)
[2022-03-13] MEDS: vancomycin/NS 1 GM ADD-VANTAGE 250 ML IV SCH (07:40)
[2022-03-13 07:41] LABS: BASOPHILS # (AUTO) 0.1 X10'3 (0-0.2); BASOPHILS % (AUTO) 0.6 % (0-1); EOSINOPHILS # (AUTO) 0.6 X10'3 (0-0.9); EOSINOPHILS % (AUTO) 7.5 % (0-6); HEMATOCRIT 26.9 % (42.0-52.0); HEMOGLOBIN 8.8 g/dl (14.0-17.9); LYMPHOCYTES # (AUTO) 1.3 X10'3 (1.1-4.8); LYMPHOCYTES % (AUTO) 16.2 % (21-51); MEAN CORPUSCULAR HEMOGLOBIN 27.4 PG (27.0-31.0); MEAN CORPUSCULAR HGB CONC 32.6 g/dL (33.0-36.5); MEAN PLATELET VOLUME 7.1 FL (7.4-10.4); NEUTROPHILS # (AUTO) 5.2 X10'3 (1.8-7.7); NEUTROPHILS % (AUTO) 63.7 % (42-75); PLATELET COUNT 335 X10'3 (140-440); RED BLOOD COUNT 3.21 X10'6 (4.70-6.10); WHITE BLOOD COUNT 8.2 X10'3 (4.5-11.0)
[2022-03-13 07:57] LABS: ALANINE AMINOTRANSFERASE 29 U/L (12-78); ALBUMIN/GLOBULIN RATIO 0.9 (1.1-1.5); ALKALINE PHOSPHATASE 100 IU/L (46-116); ANION GAP 8 (8-16); ASPARTATE AMINO TRANSFERASE 32 U/L (10-37); BILIRUBIN,TOTAL 0.2 MG/DL (0.1-1.0); BLOOD UREA NITROGEN 22 MG/DL (7-18); BUN/CREATININE RATIO 11.1 (5.4-32.0); CALCIUM 7.9 MG/DL (8.5-10.1); CHLORIDE 107 MMOL/L (99-107); CREATININE 1.99 MG/DL (0.60-1.10); GLUCOSE 121 MG/DL (70-104); POTASSIUM 4.1 MMOL/L (3.5-5.1); SODIUM 139 MMOL/L (135-145); TOTAL CARBON DIOXIDE 24.2 MMOL/L (24-32); TOTAL PROTEIN 6.3 G/DL (6.4-8.2); eGFR 33 ML/MIN
[2022-03-13 07:59] LABS: VANCOMYCIN,TROUGH 29.2 UG/ML (6.0-14.0)
[2022-03-13] MEDS: K and/or MAG REPLACEMENT MC SCH ×2 (08:00→20:00)
[2022-03-13] MEDS: heparin, porcine 5000 units/ml vial SQ SCH ×2 (08:00→15:58)
[2022-03-13 10:00] VITALS: BP 142/71
[2022-03-13] MEDS ORDERED: HYDROmorphone inj. 0.5 MG/0.5 ML DISP.SYRIN IV PRN (10:30)
[2022-03-13] MEDS: HYDROmorphone 1 mg/ml syringe IV PRN ×2 (11:16→15:56)
[2022-03-13] MEDS ORDERED: aspirin 81mg, enteric-coated 1 TAB TABLET.DR PO SCH (12:00)
[2022-03-13] MEDS ORDERED: atorvastatin 20mg tablet PO SCH (12:00)
[2022-03-13] MEDS: aspirin 325mg tablet PO SCH (12:16)
[2022-03-13] MEDS: atorvastatin 20mg tablet PO SCH (12:17)
[2022-03-13] MEDS: ciprofloxacin 250mg tablet PO SCH ×2 (12:17→22:49)
[2022-03-13] MEDS: PARoxetine 20mg tablet PO SCH (12:17)
[2022-03-13 12:49] LABS: % IRON SATURATION 7 % (11-46); IRON 22 UG/DL (53-167); TOTAL IRON BINDING CAPACITY 328 UG/DL (259-388)
[2022-03-13 18:00] VITALS: BP 121/55
--- NOTE | 2022-03-13 18:40 | NUR ---
Patient in room ORTHO 4007. I have received report from Waldemar PATEL and had the opportunity to ask questions and assume patient care.
[2022-03-13] MEDS ORDERED: celeCOXIB 100mg capsule PO SCH (20:00)
[2022-03-13 22:00] VITALS: BP 119/86
[2022-03-14] MEDS: heparin, porcine 5000 units/ml vial SQ SCH ×4 (01:25→23:37)
[2022-03-14] MEDS: oxyCODONE IR 5mg (immed. release) tablet PO PRN ×2 (01:32→19:53)
[2022-03-14] MEDS: acetaminophen 325mg tablet PO SCH ×2 (02:00→08:48)
--- NOTE | 2022-03-14 05:43 | NUR ---
PATIENT MEDICATED X2 FOR R SHOULDER PAIN THROUGH THE SHIFT. VOIDING QS VIA URINAL AND NO MORE DRAINAGE FROM R SHLDR THIS SHIFT. FRESH POWDER FRANCISCA TO INCISION. REPORT TO EARLY SHIFT RN.
[2022-03-14 06:00] VITALS: BP 135/73
[2022-03-14 07:13] LABS: BASOPHILS # (AUTO) 0.1 X10'3 (0-0.2); BASOPHILS % (AUTO) 1.3 % (0-1); EOSINOPHILS # (AUTO) 0.8 X10'3 (0-0.9); EOSINOPHILS % (AUTO) 11.6 % (0-6); HEMATOCRIT 24.7 % (42.0-52.0); LYMPHOCYTES # (AUTO) 1.3 X10'3 (1.1-4.8); LYMPHOCYTES % (AUTO) 19.8 % (21-51); MEAN CORPUSCULAR HGB CONC 32.6 g/dL (33.0-36.5); MEAN PLATELET VOLUME 7.9 FL (7.4-10.4); MONOCYTES # (AUTO) 0.9 X10'3 (0-0.9); MONOCYTES % (AUTO) 13.5 % (2-12); NEUTROPHILS # (AUTO) 3.6 X10'3 (1.8-7.7); NEUTROPHILS % (AUTO) 53.8 % (42-75); PLATELET COUNT 323 X10'3 (140-440); RED BLOOD COUNT 2.98 X10'6 (4.70-6.10); RED CELL DISTRIBUTION WIDTH 14.7 % (11.5-14.5); WHITE BLOOD COUNT 6.6 X10'3 (4.5-11.0)
[2022-03-14 07:22] LABS: ALANINE AMINOTRANSFERASE 24 U/L (12-78); ALBUMIN 2.8 G/DL (3.4-5.0); ALBUMIN/GLOBULIN RATIO 0.8 (1.1-1.5); ALKALINE PHOSPHATASE 87 IU/L (46-116); ANION GAP 8 (8-16); ASPARTATE AMINO TRANSFERASE 25 U/L (10-37); BILIRUBIN,TOTAL 0.2 MG/DL (0.1-1.0); BLOOD UREA NITROGEN 25 MG/DL (7-18); BUN/CREATININE RATIO 12.4 (5.4-32.0); CHLORIDE 110 MMOL/L (99-107); CREATININE 2.02 MG/DL (0.60-1.10); GLUCOSE 119 MG/DL (70-104); POTASSIUM 4.5 MMOL/L (3.5-5.1); SODIUM 141 MMOL/L (135-145); TOTAL CARBON DIOXIDE 23.3 MMOL/L (24-32); TOTAL PROTEIN 6.2 G/DL (6.4-8.2); VANCOMYCIN,RANDOM 22.2 UG/ML; eGFR 32 ML/MIN
[2022-03-14] MEDS: K and/or MAG REPLACEMENT MC SCH ×2 (08:00→20:00)
[2022-03-14] MEDS: aspirin 325mg tablet PO SCH (08:48)
[2022-03-14] MEDS: gabapentin 300mg capsule PO SCH ×2 (08:48→19:52)
[2022-03-14] MEDS: pantoprazole 40mg Tablet.DR PO SCH ×2 (08:48→09:05)
[2022-03-14] MEDS: lisinopril 20mg tablet PO SCH (08:49)
[2022-03-14] MEDS ORDERED: lisinopril 20mg tablet PO SCH (09:05)
[2022-03-14] MEDS ORDERED: VANCOMYCIN LEVEL IV ONE (09:45)
[2022-03-14 10:00] VITALS: BP 142/65
[2022-03-14] MEDS ORDERED: vancomycin/NS 1 GM ADD-VANTAGE 250 ML IV PRN (10:30)
[2022-03-14] MEDS: ciprofloxacin 250mg tablet PO SCH (10:59)
[2022-03-14] MEDS: PARoxetine 20mg tablet PO SCH (12:31)
[2022-03-14] MEDS: atorvastatin 20mg tablet PO SCH (12:32)
[2022-03-14] MEDS: normal saline 1000ml 1,000 ML IV SCH ×2 (14:02→23:35)
[2022-03-14 18:00] VITALS: BP 142/61
--- NOTE | 2022-03-14 18:40 | NUR ---
Report given to Rocio PATEL
--- NOTE | 2022-03-14 18:53 | NUR ---
Patient in room ORTHO 4007. I have received report from POWER PATEL and had the opportunity to ask questions and assume patient care.
[2022-03-14] MEDS ORDERED: furosemide 20 MG/2 ML vial IV ONE (21:00)
[2022-03-14 22:00] VITALS: BP 155/66
[2022-03-15 02:00] VITALS: BP 156/65
[2022-03-15] MEDS: VANCOMYCIN LEVEL IV SCH (03:00)
[2022-03-15] MEDS: oxyCODONE IR 5mg (immed. release) tablet PO PRN ×3 (05:17→20:17)
[2022-03-15 06:00] VITALS: BP 166/67
[2022-03-15 06:36] LABS: BASOPHILS # (AUTO) 0.1 X10'3 (0-0.2); BASOPHILS % (AUTO) 1.3 % (0-1); EOSINOPHILS # (AUTO) 0.6 X10'3 (0-0.9); EOSINOPHILS % (AUTO) 11.1 % (0-6); HEMOGLOBIN 7.8 g/dl (14.0-17.9); LYMPHOCYTES # (AUTO) 1.2 X10'3 (1.1-4.8); LYMPHOCYTES % (AUTO) 22.4 % (21-51); MEAN CORPUSCULAR HEMOGLOBIN 26.7 PG (27.0-31.0); MEAN CORPUSCULAR HGB CONC 32.7 g/dL (33.0-36.5); MEAN CORPUSCULAR VOLUME 81.8 FL (78-98); MEAN PLATELET VOLUME 7.3 FL (7.4-10.4); MONOCYTES # (AUTO) 0.6 X10'3 (0-0.9); MONOCYTES % (AUTO) 12.5 % (2-12); NEUTROPHILS # (AUTO) 2.7 X10'3 (1.8-7.7); NEUTROPHILS % (AUTO) 52.7 % (42-75); PLATELET COUNT 342 X10'3 (140-440); RED BLOOD COUNT 2.94 X10'6 (4.70-6.10); RED CELL DISTRIBUTION WIDTH 14.2 % (11.5-14.5); WHITE BLOOD COUNT 5.2 X10'3 (4.5-11.0)
--- NOTE | 2022-03-15 06:37 | NUR ---
Patient in room ORTHO 4007. I have received report from Rocio PATEL and had the opportunity to ask questions and assume patient care.
[2022-03-15 06:49] LABS: ALANINE AMINOTRANSFERASE 24 U/L (12-78); ALBUMIN 2.6 G/DL (3.4-5.0); ALBUMIN/GLOBULIN RATIO 0.8 (1.1-1.5); ALKALINE PHOSPHATASE 80 IU/L (46-116); ANION GAP 11 (8-16); ASPARTATE AMINO TRANSFERASE 24 U/L (10-37); BILIRUBIN,TOTAL 0.2 MG/DL (0.1-1.0); BLOOD UREA NITROGEN 23 MG/DL (7-18); BUN/CREATININE RATIO 12.2 (5.4-32.0); CALCIUM 8.1 MG/DL (8.5-10.1); CHLORIDE 111 MMOL/L (99-107); CREATININE 1.88 MG/DL (0.60-1.10); GLUCOSE 104 MG/DL (70-104); POTASSIUM 4.2 MMOL/L (3.5-5.1); SODIUM 146 MMOL/L (135-145); eGFR 35 ML/MIN
[2022-03-15] MEDS: normal saline 1000ml 1,000 ML IV SCH ×2 (06:54→12:34)
[2022-03-15] MEDS: ciprofloxacin 250mg tablet PO SCH (07:33)
[2022-03-15] MEDS: pantoprazole 40mg Tablet.DR PO SCH (07:37)
[2022-03-15] MEDS: gabapentin 300mg capsule PO SCH ×2 (07:37→20:16)
[2022-03-15] MEDS: heparin, porcine 5000 units/ml vial SQ SCH ×2 (07:38→20:21)
[2022-03-15] MEDS: aspirin 325mg tablet PO SCH (07:38)
[2022-03-15] MEDS: K and/or MAG REPLACEMENT MC SCH ×2 (08:16→19:28)
[2022-03-15 08:30] LABS: VANCOMYCIN,RANDOM 15.4 UG/ML
--- NOTE | 2022-03-15 09:33 | NUR ---
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 Currently on Regular diet w/ mostly 100% intake of meals meeting est nutrient needs at this time. [facility] 03/13. No nutrition intervention implemented at this time, will continue to monitor and make recommendations as appropriate. Recs: 1. Continue Regular diet as tolerated 2. Bowel care per rx 3. Scaled wts this admit Addendum: 03/15/22 at [address] Amended: Links added.
[2022-03-15 10:00] VITALS: BP 143/55
--- NOTE | 2022-03-15 10:38 | NUR ---
Dr. Barragan and Dr. Redd in to see patient. Case management to set up antibiotic therapy on discharge.
[2022-03-15] MEDS: PARoxetine 20mg tablet PO SCH (12:32)
[2022-03-15] MEDS: atorvastatin 20mg tablet PO SCH (12:32)
[2022-03-15] MEDS ORDERED: vancomycin/NS 1 GM ADD-VANTAGE 250 ML IV ONE (13:00)
--- NOTE | 2022-03-15 14:17 | NUR ---
SPOKE WITH DR. FREEMAN REGARDING DRESSING CHANGE. DR FREEMAN WANTS THE DRESSING CHANGED TO A BORDER GAUZE AND NOTE ANY DRAINAGE OR REDNESS NOTED, DR FREEMAN INQUIRED ABOUT THE PATIENT AND I STATED "DR GUERRERO AND DR GRADY WERE WORKING ON THE ANTIBIOTIC THERAPY AND KIDNEY INJURY. DR. FREEMAN STATED HE WANTED TO RESUME WITH WHATEVER DR ESPINOSA PLAN IS.
--- NOTE | 2022-03-15 15:12 | NUR ---
CHANGED PATIENT DRESSING, WIPED AROUND THE INCISION WITH CHLORHEXIDINE WIPE TO CLEAR OFF OLD BLOOD. PLACED NEW CLEAN BORDERED GAUZE ON PATIENTS SHOULDER. DRESSING CLEAN DRY AND INTACT, AND WOUND ASYMPTOMATIC.
[2022-03-15] MEDS: acetaminophen 325mg tablet PO PRN (15:58)
[2022-03-15 18:00] VITALS: BP 134/75
--- NOTE | 2022-03-15 18:15 | NUR ---
Problems reprioritized. Patient report given, questions answered & plan of care reviewed with TESSIE PATEL.
--- NOTE | 2022-03-15 18:31 | NUR ---
Patient in room ORTHO 4007. I have received report from Gina PATEL and had the opportunity to ask questions and assume patient care.
[2022-03-15 20:00] VITALS: BP 134/75
[2022-03-16] MEDS: normal saline 1000ml 1,000 ML IV SCH ×3 (01:32→23:01)
[2022-03-16] MEDS: oxyCODONE IR 5mg (immed. release) tablet PO PRN (01:38)
[2022-03-16] MEDS: VANCOMYCIN LEVEL IV SCH (03:00)
--- NOTE | 2022-03-16 06:30 | NUR ---
Problems reprioritized. Patient report given, questions answered & plan of care reviewed with Gina PATEL.
[2022-03-16 06:39] VITALS: BP 136/55
[2022-03-16] MEDS: aspirin 325mg tablet PO SCH (07:25)
[2022-03-16] MEDS: pantoprazole 40mg Tablet.DR PO SCH (07:25)
[2022-03-16] MEDS: ciprofloxacin 250mg tablet PO SCH (07:26)
[2022-03-16] MEDS: gabapentin 300mg capsule PO SCH ×2 (07:26→19:55)
[2022-03-16] MEDS: heparin, porcine 5000 units/ml vial SQ SCH ×2 (07:27→19:57)
[2022-03-16 08:03] LABS: ALANINE AMINOTRANSFERASE 20 U/L (12-78); ALBUMIN 2.7 G/DL (3.4-5.0); ALBUMIN/GLOBULIN RATIO 0.8 (1.1-1.5); ALKALINE PHOSPHATASE 83 IU/L (46-116); ANION GAP 10 (8-16); ASPARTATE AMINO TRANSFERASE 24 U/L (10-37); BILIRUBIN,TOTAL 0.2 MG/DL (0.1-1.0); BLOOD UREA NITROGEN 24 MG/DL (7-18); BUN/CREATININE RATIO 12.1 (5.4-32.0); CALCIUM 8.3 MG/DL (8.5-10.1); CHLORIDE 110 MMOL/L (99-107); CREATININE 1.99 MG/DL (0.60-1.10); GLUCOSE 101 MG/DL (70-104); POTASSIUM 4.5 MMOL/L (3.5-5.1); SODIUM 142 MMOL/L (135-145); TOTAL CARBON DIOXIDE 22.3 MMOL/L (24-32); TOTAL PROTEIN 6.1 G/DL (6.4-8.2); VANCOMYCIN,RANDOM 18.2 UG/ML; eGFR 33 ML/MIN
[2022-03-16] MEDS: K and/or MAG REPLACEMENT MC SCH ×2 (08:41→20:00)
[2022-03-16 10:00] VITALS: BP 133/61
[2022-03-16 10:38] VITALS: BP 133/61
[2022-03-16] MEDS: PARoxetine 20mg tablet PO SCH (13:09)
[2022-03-16] MEDS: atorvastatin 20mg tablet PO SCH (13:10)
[2022-03-16 14:21] LABS: CLARITY,URINE CLEAR (Clear); COLOR,URINE YELLOW (Yellow); GLUCOSE, URINE NEGATIVE (Neg); KETONES,URINE NEGATIVE (Neg); LEUKOCYTE ESTERASE ,URINE NEGATIVE (Neg); NITRITES, URINE NEGATIVE (Neg); OCCULT BLOOD,URINE NEGATIVE (Neg); PH,URINE 5.5 (4.8-8.0); PROTEIN,URINE NEGATIVE (Neg); UROBILINOGEN,URINE 0.2 E.U/dL (0.2-1.0)
[2022-03-16 14:22] LABS: UA COLLECTION TYPE NON-SPECIFIED
[2022-03-16 18:00] VITALS: BP 152/88
--- NOTE | 2022-03-16 18:30 | NUR ---
Patient in room ORTHO 4007. I have received report from Gina PATEL and had the opportunity to ask questions and assume patient care.
--- NOTE | 2022-03-16 18:33 | NUR ---
Problems reprioritized. Patient report given, questions answered & plan of care reviewed with BHANU PATEL.
[2022-03-16] MEDS: acetaminophen 325mg tablet PO PRN (18:55)
[2022-03-16] MEDS: famotidine 20mg tablet PO SCH (19:55)
[2022-03-16 22:00] VITALS: BP 142/37
[2022-03-17] MEDS: VANCOMYCIN LEVEL IV SCH (03:00)
--- NOTE | 2022-03-17 03:24 | NUR ---
Unable to draw from LUE picc line for AM labs. Both ports flush well.
[2022-03-17] MEDS: oxyCODONE IR 5mg (immed. release) tablet PO PRN (03:48)
[2022-03-17 06:00] VITALS: BP 160/60
[2022-03-17 06:15] LABS: BASOPHILS # (AUTO) 0.1 X10'3 (0-0.2); BASOPHILS % (AUTO) 1.8 % (0-1); EOSINOPHILS # (AUTO) 0.5 X10'3 (0-0.9); EOSINOPHILS % (AUTO) 9.9 % (0-6); HEMOGLOBIN 8.1 g/dl (14.0-17.9); LYMPHOCYTES # (AUTO) 1.1 X10'3 (1.1-4.8); LYMPHOCYTES % (AUTO) 22.5 % (21-51); MEAN CORPUSCULAR HEMOGLOBIN 26.4 PG (27.0-31.0); MEAN CORPUSCULAR HGB CONC 32.5 g/dL (33.0-36.5); MEAN CORPUSCULAR VOLUME 81.1 FL (78-98); MEAN PLATELET VOLUME 7.6 FL (7.4-10.4); MONOCYTES # (AUTO) 0.5 X10'3 (0-0.9); MONOCYTES % (AUTO) 10.3 % (2-12); NEUTROPHILS # (AUTO) 2.8 X10'3 (1.8-7.7); NEUTROPHILS % (AUTO) 55.5 % (42-75); PLATELET COUNT 416 X10'3 (140-440); RED BLOOD COUNT 3.08 X10'6 (4.70-6.10); RED CELL DISTRIBUTION WIDTH 14.4 % (11.5-14.5); WHITE BLOOD COUNT 5.1 X10'3 (4.5-11.0)
--- NOTE | 2022-03-17 06:32 | NUR ---
Problems reprioritized. Patient report given, questions answered & plan of care reviewed with Gina PATEL.
[2022-03-17 06:33] LABS: ALANINE AMINOTRANSFERASE 22 U/L (12-78); ALBUMIN 2.9 G/DL (3.4-5.0); ALBUMIN/GLOBULIN RATIO 0.8 (1.1-1.5); ALKALINE PHOSPHATASE 87 IU/L (46-116); ANION GAP 9 (8-16); ASPARTATE AMINO TRANSFERASE 24 U/L (10-37); BILIRUBIN,TOTAL 0.2 MG/DL (0.1-1.0); BLOOD UREA NITROGEN 23 MG/DL (7-18); BUN/CREATININE RATIO 13.3 (5.4-32.0); CALCIUM 8.4 MG/DL (8.5-10.1); CHLORIDE 108 MMOL/L (99-107); CREATININE 1.73 MG/DL (0.60-1.10); GLUCOSE 98 MG/DL (70-104); MAGNESIUM 1.7 MG/DL (1.5-2.4); PHOSPHORUS 4.7 MG/DL (2.3-4.5); POTASSIUM 4.5 MMOL/L (3.5-5.1); SODIUM 142 MMOL/L (135-145); TOTAL PROTEIN 6.5 G/DL (6.4-8.2); VANCOMYCIN,RANDOM 11.6 UG/ML; eGFR 39 ML/MIN
[2022-03-17] MEDS: K and/or MAG REPLACEMENT MC SCH ×2 (08:25→20:00)
[2022-03-17] MEDS: gabapentin 300mg capsule PO SCH ×2 (08:28→20:16)
[2022-03-17] MEDS: ciprofloxacin 250mg tablet PO SCH (08:28)
[2022-03-17] MEDS: normal saline 1000ml 1,000 ML IV SCH (08:29)
[2022-03-17] MEDS: famotidine 20mg tablet PO SCH (08:29)
[2022-03-17] MEDS: aspirin 325mg tablet PO SCH (08:29)
[2022-03-17] MEDS: heparin, porcine 5000 units/ml vial SQ SCH ×2 (08:29→20:16)
[2022-03-17] MEDS ORDERED: vancomycin/NS 1 GM ADD-VANTAGE 250 ML IV ONE (09:00)
[2022-03-17 10:30] VITALS: BP 155/51
[2022-03-17] MEDS ORDERED: prednisone 10mg tablet PO ONE (10:55)
[2022-03-17] MEDS: PARoxetine 20mg tablet PO SCH (11:38)
[2022-03-17] MEDS: atorvastatin 20mg tablet PO SCH (11:38)
[2022-03-17 14:00] VITALS: BP 151/80
[2022-03-17] MEDS ORDERED: predniSONE 20 mg tablet PO ONE (17:20)
[2022-03-17 18:00] VITALS: BP 155/92
--- NOTE | 2022-03-17 18:33 | NUR ---
Problems reprioritized. Patient report given, questions answered & plan of care reviewed with FABY PATEL.
--- NOTE | 2022-03-17 18:49 | NUR ---
Patient in room ORTHO 4007. I have received report from Gina PATEL and had the opportunity to ask questions and assume patient care.
[2022-03-17 22:26] VITALS: BP 161/79
[2022-03-18 02:00] VITALS: BP 156/93
[2022-03-18] MEDS: VANCOMYCIN LEVEL IV SCH (03:00)
[2022-03-18 05:59] LABS: BASOPHILS % (AUTO) 1.2 % (0-1); EOSINOPHILS % (AUTO) 0 % (0-6); HEMATOCRIT 24.5 % (42.0-52.0); LYMPHOCYTES # (AUTO) 0.7 X10'3 (1.1-4.8); MEAN CORPUSCULAR HEMOGLOBIN 26.7 PG (27.0-31.0); MEAN CORPUSCULAR HGB CONC 32.7 g/dL (33.0-36.5); MEAN CORPUSCULAR VOLUME 81.6 FL (78-98); MEAN PLATELET VOLUME 7.5 FL (7.4-10.4); MONOCYTES # (AUTO) 0.3 X10'3 (0-0.9); MONOCYTES % (AUTO) 8.4 % (2-12); NEUTROPHILS # (AUTO) 2.6 X10'3 (1.8-7.7); NEUTROPHILS % (AUTO) 70.4 % (42-75); PLATELET COUNT 361 X10'3 (140-440); RED CELL DISTRIBUTION WIDTH 14.2 % (11.5-14.5); WHITE BLOOD COUNT 3.7 X10'3 (4.5-11.0)
[2022-03-18 06:14] LABS: MAGNESIUM 1.9 MG/DL (1.5-2.4); PHOSPHORUS 4.8 MG/DL (2.3-4.5); VANCOMYCIN,RANDOM 14.9 UG/ML
--- NOTE | 2022-03-18 06:20 | NUR ---
Problems reprioritized. Patient report given, questions answered & plan of care reviewed with Lesvia PATEL.
--- NOTE | 2022-03-18 06:22 | NUR ---
Received report from AMANDA Gruber
[2022-03-18 06:52] VITALS: BP 144/65
[2022-03-18] MEDS: ciprofloxacin 250mg tablet PO SCH (07:37)
[2022-03-18] MEDS: aspirin 325mg tablet PO SCH (07:38)
[2022-03-18] MEDS: gabapentin 300mg capsule PO SCH (07:38)
[2022-03-18] MEDS: heparin, porcine 5000 units/ml vial SQ SCH (07:38)
[2022-03-18] MEDS: K and/or MAG REPLACEMENT MC SCH (08:00)
[2022-03-18] MEDS ORDERED: famotidine 20mg tablet PO SCH (08:00)
[2022-03-18 08:07] LABS: ALANINE AMINOTRANSFERASE 22 U/L (12-78); ALBUMIN 2.7 G/DL (3.4-5.0); ALBUMIN/GLOBULIN RATIO 0.8 (1.1-1.5); ALKALINE PHOSPHATASE 83 IU/L (46-116); ANION GAP 9 (8-16); ASPARTATE AMINO TRANSFERASE 23 U/L (10-37); BILIRUBIN,TOTAL 0.2 MG/DL (0.1-1.0); BLOOD UREA NITROGEN 24 MG/DL (7-18); BUN/CREATININE RATIO 14.8 (5.4-32.0); CALCIUM 8.5 MG/DL (8.5-10.1); CHLORIDE 108 MMOL/L (99-107); CREATININE 1.62 MG/DL (0.60-1.10); GLUCOSE 138 MG/DL (70-104); POTASSIUM 4.6 MMOL/L (3.5-5.1); SODIUM 141 MMOL/L (135-145); TOTAL CARBON DIOXIDE 23.7 MMOL/L (24-32); TOTAL PROTEIN 6.2 G/DL (6.4-8.2); eGFR 42 ML/MIN
[2022-03-18] MEDS ORDERED: vancomycin/NS 1 GM ADD-VANTAGE 250 ML IV SCH (09:00)
[2022-03-18] MEDS ORDERED: FAMO20TA8 PO (09:36)
[2022-03-18 10:16] LABS: OCCULT BLOOD STOOL NEGATIVE (Neg)
[2022-03-18 10:25] VITALS: BP 155/83
[2022-03-18] MEDS ORDERED: CEFTAROLINE IV SCH ×2 (12:00→20:00)
[2022-03-18] MEDS ORDERED: NORMAL SALINE IV SCH ×2 (12:00→20:00)
[2022-03-18] MEDS: PARoxetine 20mg tablet PO SCH (12:03)
[2022-03-18] MEDS: atorvastatin 20mg tablet PO SCH (12:03)
--- NOTE | 2022-03-18 13:30 | NUR ---
PICC line dressing changed 03/18
--- NOTE | 2022-03-18 14:33 | NUR ---
Patient discharged to home; patient to follow up with [facility] at 1505. Patient sent with belongings to private vehicle via wheelchair. Patient understood all instructions that were given to him and was sent with 3 island dressings and also was provided with Dr. De Los Santos and Dr. Chisholm office numbers to schedule follow up appointments. Pepcid sent to [facility] in [place] patient declined picking it up, educated that it is available over the counter should he change his mind.
[2022-03-20] MEDS ORDERED: VANCOMYCIN LEVEL IV ONE (08:30)
== END 2022-03-18 14:44 | disposition home health service (06) | DRG 495 ==
LOC: UNDOADMIN 16:36 → ORTHO 4S 16:36
PROVIDERS: ADMIT Orthopaedic Surgery; ATTEND Orthopaedic Surgery
PROC: 0RHJ08Z Insertion of Spacer into Right Shoulder Joint, Open Approach (ICD-10-PCS; 2022-03-12)
PROC: 3E0T3BZ Introduction of Anesthetic Agent into Peripheral Nerves and Plexi, Percutaneous Approach (ICD-10-PCS; 2022-03-12)
PROC: 3E0T33Z Introduction of Anti-inflammatory into Peripheral Nerves and Plexi, Percutaneous Approach (ICD-10-PCS; 2022-03-12)
PROC: 0RPJ0JZ Removal of Synthetic Substitute from Right Shoulder Joint, Open Approach (ICD-10-PCS; principal; 2022-03-12 07:32)
DX: T84.59XA Infection and inflammatory reaction due to other internal joint prosthesis, initial encounter (principal); N17.0 Acute kidney failure with tubular necrosis; N10 Acute pyelonephritis; D64.9 Anemia, unspecified; E78.5 Hyperlipidemia, unspecified; F32.A Depression, unspecified; I12.9 Hypertensive chronic kidney disease with stage 1 through stage 4 chronic kidney disease, or unspecified chronic kidney disease; N18.9 Chronic kidney disease, unspecified; Z20.822 Contact with and (suspected) exposure to COVID-19; E66.9 Obesity, unspecified; Z96.611 Presence of right artificial shoulder joint; T36.8X5A Adverse effect of other systemic antibiotics, initial encounter; B96.89 Other specified bacterial agents as the cause of diseases classified elsewhere; G89.29 Other chronic pain; Y83.1 Surgical operation with implant of artificial internal device as the cause of abnormal reaction of the patient, or of later complication, without mention of misadventure at the time of the procedure; Y92.89 Other specified places as the place of occurrence of the external cause; Z86.14 Personal history of Methicillin resistant Staphylococcus aureus infection; Z68.30 Body mass index [BMI] 30.0-30.9, adult; Z79.899 Other long term (current) drug therapy; Z79.82 Long term (current) use of aspirin
CPT/HCPCS: 36415; 76770; 80053; 80202; 81003; 82043; 82272; 82565; 82570; 82948; 83540; 83550; 83605; 83735; 84100; 84300; 85025; 85610; 85730; 87040; 87070; 87075; 87081; 87635; 93005; 97116; 97161; 97530; A4565; A4618; A7000; C1713; C1758; C1776; C9250; G0378; J0330; J0712; J1170; J1644; J1940; J2250; J2274; J2405; J2704; J2795; J3260; J3370; J3480; J3490; J7030; J7512

== ENCOUNTER 2022-06-30 08:58 | Inpatient (IN) | payer OTHER ==
[2022-06-21 14:44] LABS: BASOPHILS # (AUTO) 0.1 X10'3 (0-0.2); BASOPHILS % (AUTO) 0.8 % (0-1); EOSINOPHILS # (AUTO) 0.5 X10'3 (0-0.9); EOSINOPHILS % (AUTO) 7.3 % (0-6); LYMPHOCYTES # (AUTO) 1.7 X10'3 (1.1-4.8); LYMPHOCYTES % (AUTO) 24.2 % (21-51); MEAN CORPUSCULAR HEMOGLOBIN 28.9 PG (27.0-31.0); MEAN CORPUSCULAR HGB CONC 34.2 g/dL (33.0-36.5); MEAN CORPUSCULAR VOLUME 84.7 FL (78-98); MEAN PLATELET VOLUME 7.7 FL (7.4-10.4); MONOCYTES # (AUTO) 0.7 X10'3 (0-0.9); MONOCYTES % (AUTO) 10.6 % (2-12); NEUTROPHILS % (AUTO) 57.1 % (42-75); PRE OP HEMATOCRIT 35.2 % (42.0-52.0); PRE OP PLATELET COUNT 298 X10'3 (140-440); RED BLOOD COUNT 4.16 X10'6 (4.70-6.10); RED CELL DISTRIBUTION WIDTH 17.9 % (11.5-14.5)
[2022-06-21 15:17] LABS: ALBUMIN 4.1 G/DL (3.4-5.0); ALKALINE PHOSPHATASE 102 IU/L (46-116); BLOOD UREA NITROGEN 18 MG/DL (7-18); BUN/CREATININE RATIO 16.2 (5.4-32.0); CALCIUM 9.4 MG/DL (8.5-10.1); CHLORIDE 107 MMOL/L (99-107); CREATININE 1.11 MG/DL (0.60-1.10); PRE OP ALT 26 U/L (30-65); PRE OP ANION GAP 9 (8-16); PRE OP AST 21 U/L (10-37); PRE OP BILIRUB, TOTAL 0.3 MG/DL (0.0-1.0); PRE OP GLUCOSE 98 MG/DL (70-104); PRE OP POTASSIUM 4.5 MMOL/L (3.4-5.1); PRE OP SODIUM 142 MMOL/L (135-145); TOTAL CARBON DIOXIDE 26.4 MMOL/L (24-32); TOTAL PROTEIN 8.3 G/DL (6.4-8.2); eGFR 64 ML/MIN
[2022-06-30] VITALS (16 sets, daily range): BP systolic 125–156; BP diastolic 60–77
[~2022-06-30] VITALS: Ht 177.8 cm; Wt 101.3 kg
[~2022-06-30 08:58] MED LIST changes: +AMLO10TA PO; -ASPI81TA52 PO; -CIPR250T4 PO; +FAMO-49 PO; +FERR-39 PO; +LISI10TA27 PO; -LISI20TA28 PO; -PANT40TA54 PO; -PARO20TA6 PO; +PARO30TA4 PO; -RIFA300C9 PO; -TRAM50TA2 PO; +ceFAZolin inj. 2,000 MG in dextrose 5%-water 100 ML IV ONE; +famotidine 20mg tablet PO ONE; +ringers solution, lacted 1,000 ML IV SCH; +tranexamic acid inj. 1,000 MG in 0.7% saline 100 ML PMX IV ONE; +vancomycin 1,500 MG in NS 300ml IV soln IV ONE
--- NOTE | 2022-06-30 09:35 | NUR ---
CSM: PEDAL PULSES PARKED. PATIENT STATES THEY USED MUPIROCIN CREAM DIRECTED.AND WATCHED THE VIDEO VIDEO. EDUCATED PAT ON THE USE OF THE INCENTIVE SPIROMETER AND ITS IMPORTANCE
[2022-06-30] MEDS ORDERED: vancomycin 1,000mg inj ONE (15:32)
[2022-06-30] MEDS ORDERED: ROPIVAcaine 0.5% (5mg/ml) 30ml vial ONE (15:38)
[2022-06-30] MEDS ORDERED: ondansetron/PF 4mg/2ml inj ONE ×2 (15:41→17:37)
[2022-06-30] MEDS ORDERED: midazolam 1 mg/ML 2ml injection ONE (15:41)
[2022-06-30] MEDS ORDERED: fentaNYL/PF 50MCG/1 ML 2ML syringe ONE (15:41)
[2022-06-30] MEDS ORDERED: sevoflurane 250ml liquid IH ONE (15:41)
[2022-06-30] MEDS ORDERED: HYDROmorphone/PF 0.2 MG/ML SYRINGE IV PRN (17:20)
[2022-06-30] MEDS ORDERED: ondansetron/PF 4mg/2ml inj IV PRN ×2 (17:20→18:45)
[2022-06-30] MEDS ORDERED: ringers solution, lacted 1,000 ML IV SCH (17:20)
[2022-06-30] MEDS ORDERED: ceFAZolin 1000mg inj ONE (17:23)
[2022-06-30] MEDS ORDERED: neostigmine methylsulfate 1 MG/ML 10ml vial ONE (17:37)
[2022-06-30] MEDS ORDERED: propofol inj 20 ML IV ONE (17:37)
[2022-06-30] MEDS ORDERED: rocuronium 10mg/ml inj IV ONE (17:37)
[2022-06-30] MEDS ORDERED: LIDOcaine 1%/PF 5ML 10 MG/ML VIAL ONE (17:37)
[2022-06-30] MEDS ORDERED: glycopyrrolate 0.2mg/ml inj ONE (17:37)
[2022-06-30] MEDS ORDERED: dexamethasone sod phosphate 4mg/ml inj. ONE (17:37)
[2022-06-30] MEDS ORDERED: ePHEDrine 50MG/ML INJ. ONE (18:08)
[2022-06-30] MEDS ORDERED: phenylephrine 10mg/ml inj. ONE (18:08)
--- NOTE | 2022-06-30 18:29 | NUR ---
Received from OR via ORTHO BED , accompanied by Anesthesiologist HARDIK and report given by Anesthesiolgist. PATIENT WITH 20G PIV IN LEFT UE RUNNING LR AT 100. MEDICATED FOR PAIN UPON ARRIVAL. PATIENT WITH ANTERIOR RIGHT SHOULDER DRESSING THAT IS CDI. PATIENT WITH 10L MASK ON WITH 100% SATURATIONS. SCDS DONNED. MEDICATED FOR PAIN UPON ARRIVAL. Addendum: 06/30/22 at 1850 by Amaury Hill RN, RN Amended: Links added.
[2022-06-30] MEDS: HYDROmorphone/PF 0.2 MG/ML SYRINGE IV PRN ×2 (18:41→19:06)
[2022-06-30] MEDS ORDERED: bisacodyl 10mg suppository rectal RC PRN (18:45)
[2022-06-30] MEDS ORDERED: HYDROmorphone 1 mg/ml syringe IV PRN (18:45)
[2022-06-30] MEDS ORDERED: oxyCODONE IR 5mg (immed. release) tablet PO PRN (18:45)
[2022-06-30] MEDS ORDERED: naloxone 0.4 mg/ml inj IV PRN (18:45)
[2022-06-30] MEDS ORDERED: HYDROmorphone inj. 0.5 MG/0.5 ML DISP.SYRIN IV PRN (18:45)
[2022-06-30] MEDS ORDERED: diphenhydrAMINE 25mg capsule PO PRN ×2 (18:45)
[2022-06-30] MEDS ORDERED: acetaminophen 325mg tablet PO PRN (18:45)
[2022-06-30] MEDS ORDERED: magnesium hydroxide 30ml (MOM) UD suspension PO PRN (18:45)
[2022-06-30] MEDS: morphine 2 MG/ML inj. syringe IV PRN ×2 (18:53→19:05)
[2022-06-30] MEDS ORDERED: acetaminophen 1,000mg/100ml IV 100 ML IV STA (18:54)
--- NOTE | 2022-06-30 19:29 | NUR ---
CARE OF PATIENT AND REPORT HAS BEEN CALLED. ALL QUESTIONS ANSWERED TO ACCEPTING RN. PATIENT HAS MET ALL CRITERIA FOR TRANSFER TO THE [facility] ICU FLOOR. VSS. DRESSINGS INTACT. BED LOW, CALL LIGHT PRESENT AND 2 RAILS UP. AMANDA CENTENO PRESENT TO ACCEPT. PATIENT BELONGINGS OF SINGLE BAG AND CPAP SENT WITH PATIENT TO ROOM. ATTEMPTED TO CALL BUT NO ANSWER RECEIVED. DRESSING TO RIGHT SHOULDER SATURATED. DOFFED BLOODY ISLAND DRESSING AND REPLACED WITH STERILE ABD DRESSINGS WITH FOAM TAPE. CARE TURNED OVER TO RN AT BEDSIDE. Addendum: 06/30/22 at 1954 by Amaury Hill RN, RN Amended: Links added.
--- NOTE | 2022-06-30 19:45 | NUR ---
tissue recovery technician tried to call - no answer on phone. he will try to find on 2nd floor before he goes home. will attempt to call later this evening.
--- NOTE | 2022-06-30 19:55 | NUR ---
noted dressing saturated through island and shoulder wrap. currency examiner took down dressing and replaced with 2 abd and foam tape. ice bag placed on shoulder. instructed pt not to move arm. sling inatct
[2022-06-30] MEDS ORDERED: vancomycin/NS 1 GM ADD-VANTAGE 250 ML IV SCH (20:00)
[2022-06-30] MEDS ORDERED: sennosides 8.6mg tablet PO SCH (21:00)
[2022-06-30] MEDS: potassium cl 20mEq in 1/2 NS 1,000 ML IV SCH (21:50)
[2022-06-30] MEDS: gabapentin 300mg capsule PO SCH (21:57)
[2022-06-30] MEDS: acetaminophen 325mg tablet PO SCH (21:57)
[2022-06-30] MEDS: oxyCODONE IR 5mg (immed. release) tablet PO PRN (21:57)
[2022-06-30] MEDS ORDERED: tranexamic acid inj. 1,000 MG in normal saline 100ml IV soln 90 ML IV ONE (23:00)
[2022-07-01] MEDS ORDERED: gabapentin 300mg capsule PO SCH
[2022-07-01] MEDS: ceFAZolin/D5W- 1GM premix 50 ML IV SCH ×2 (00:38→07:06)
[2022-07-01 01:48] VITALS: BP 135/65
[2022-07-01] MEDS: acetaminophen 325mg tablet PO SCH ×2 (01:56→07:10)
[2022-07-01] MEDS: oxyCODONE IR 5mg (immed. release) tablet PO PRN ×2 (01:56→05:58)
[2022-07-01] MEDS: potassium cl 20mEq in 1/2 NS 1,000 ML IV SCH ×2 (01:57→10:45)
[2022-07-01] MEDS ORDERED: LIDOcaine 2% 10ml TOPICAL JELLY (Urojet) MM ONE ×2 (05:55→11:25)
--- NOTE | 2022-07-01 06:41 | NUR ---
reported to days. noted pt needed st cath. encouraged to void earlier. keep fluids running
[2022-07-01 06:52] VITALS: BP 129/62
[2022-07-01] MEDS: gabapentin 300mg capsule PO SCH ×2 (07:07→12:05)
[2022-07-01] MEDS ORDERED: lisinopril 10 MG tablet PO SCH (08:00)
[2022-07-01] MEDS ORDERED: ferrous sulfate 325mg tablet PO SCH (08:00)
[2022-07-01] MEDS ORDERED: PARoxetine 20mg tablet PO SCH (08:00)
[2022-07-01] MEDS ORDERED: famotidine 20mg tablet PO SCH (08:00)
[2022-07-01] MEDS ORDERED: amLODIPine 5mg tablet PO SCH (08:00)
[2022-07-01] MEDS ORDERED: aspirin 325mg tablet PO SCH (08:30)
--- NOTE | 2022-07-01 09:53 | NUR ---
Joint Surgery Consult: Pt s/p R shoulder surgery this admit. Pt seen by MICKY for written/verbal high protein diet ed w/ RD contact information provided. MICKY encouraged pt to contact dietitian's office if further questions/concerns. Addendum: 07/01/22 at [address] Amended: Links added.
[2022-07-01 10:00] VITALS: BP 124/61
--- NOTE | 2022-07-01 11:10 | NUR ---
patient unable to void, bladder scanned patient, volume >630ml. will notify
[2022-07-01] MEDS ORDERED: atorvastatin 20mg tablet PO SCH (12:00)
--- NOTE | 2022-07-01 12:18 | NUR ---
patient straight cathed 375ml out
--- NOTE | 2022-07-01 14:50 | NUR ---
pATIent discharged at 1430 in stable condition. Patient belongings sent with pt. iv removed tip intact, no complications. educated on discharge follow up.
[2022-07-01] MEDS ORDERED: celeCOXIB 100mg capsule PO SCH (20:00)
[2022-07-02] MEDS ORDERED: acetaminophen 325mg tablet PO PRN (18:45)
== END 2022-07-01 14:30 | disposition home or self-care (01) | DRG 483 ==
LOC: PAS IN 08:58 → ORTHO 4S 19:36
PROVIDERS: ADMIT Orthopaedic Surgery; ATTEND Orthopaedic Surgery
PROC: 0RRJ00Z Replacement of Right Shoulder Joint with Reverse Ball and Socket Synthetic Substitute, Open Approach (ICD-10-PCS; 2022-06-30)
PROC: 3E0T3BZ Introduction of Anesthetic Agent into Peripheral Nerves and Plexi, Percutaneous Approach (ICD-10-PCS; 2022-06-30)
PROC: 3E0T33Z Introduction of Anti-inflammatory into Peripheral Nerves and Plexi, Percutaneous Approach (ICD-10-PCS; 2022-06-30)
PROC: 0RPJ0JZ Removal of Synthetic Substitute from Right Shoulder Joint, Open Approach (ICD-10-PCS; principal; 2022-06-30 15:41)
DX: M25.511 Pain in right shoulder (principal); Z96.611 Presence of right artificial shoulder joint; I10 Essential (primary) hypertension; K21.9 Gastro-esophageal reflux disease without esophagitis; G47.30 Sleep apnea, unspecified; E66.9 Obesity, unspecified; Z68.32 Body mass index [BMI] 32.0-32.9, adult
CPT/HCPCS: 36415; 73020; 80053; 82948; 85025; 87070; 87075; 87077; 87081; 87186; 87811; 97110; 97162; A4615; A4618; A6449; A7000; C1758; C1776; C9250; G0378; J0131; J0690; J1100; J1170; J2250; J2270; J2370; J2405; J2704; J2710; J2795; J3010; J3370; J3480; J3490; J7040; J7060; J7120; L3670